=== PATIENT | female | born 1950 | race Caucasian/White ===

== ENCOUNTER 2016-09-27 08:12 | Emergency (ER) | payer OTHER ==
[~2016-09-27] VITALS: Ht 152.4 cm; Wt 109.5 kg
[2016-09-27] MEDS ORDERED: VENTOLIN HFA18 GM IH (08:31)
[2016-09-27] MEDS ORDERED: ADVAIR 250/501 DISK IH (08:32)
[2016-09-27] MEDS ORDERED: LANTUS 10100 UNITS/ SC (08:32)
[2016-09-27] MEDS ORDERED: ZAFIRLUKAST20 M1 PO (08:33)
[2016-09-27] MEDS ORDERED: ATORVASTATIN CA40 MG PO (08:33)
[2016-09-27] MEDS ORDERED: METFORMIN HCL500 MG PO (08:33)
[2016-09-27] MEDS ORDERED: ULTRAM50 MG PO (10:18)
[2016-09-27 10:35] VITALS: BP 148/97
== END 2016-09-27 10:34 | disposition home or self-care (01) ==
LOC: EME 08:12
DX: M79.605 Pain in left leg (principal); M62.838 Other muscle spasm; I10 Essential (primary) hypertension; Z91.14 Patient's other noncompliance with medication regimen; E11.9 Type 2 diabetes mellitus without complications; J44.9 Chronic obstructive pulmonary disease, unspecified; Z79.4 Long term (current) use of insulin
CPT/HCPCS: 93971; 99281; 99284